=== PATIENT | male | born 1995 | race Hispanic/Latino ===

== ENCOUNTER 2018-08-29 08:00 | Day surgery (SDC) | payer MEDICAID ==
[~2018-08-29] VITALS: Ht 167.6 cm; Wt 120.2 kg
[~2018-08-29 08:00] MED LIST: IBUP-2353 PO; LURA60TA PO; SODIUM CHLORIDE 0.9% 1000ML 1,000 ML IV ONE
[2018-08-29 09:23] VITALS: BP 107/81
[2018-08-29 10:56] VITALS: BP 108/37
[2018-08-29 10:59] VITALS: BP 100/63
[2018-08-29 11:03] VITALS: BP 96/51
[2018-08-29 11:08] VITALS: BP 105/54
--- NOTE | 2018-08-29 11:14 | NUR ---
update Patient and mother awaiting ride, placed in Day Patient room 9 and informed to use call light to inform us when their ride is here so we may take them to their car.
== END 2018-08-29 12:47 | disposition home or self-care (01) ==
LOC: ENDO 08:00 → DAH 08:00 → ENDO 12:47
PROVIDERS: ATTEND Internal Medicine
DX: K29.50 Unspecified chronic gastritis without bleeding (principal); B96.81 Helicobacter pylori [H. pylori] as the cause of diseases classified elsewhere; K31.89 Other diseases of stomach and duodenum; K22.8 Other specified diseases of esophagus; K80.20 Calculus of gallbladder without cholecystitis without obstruction; F90.9 Attention-deficit hyperactivity disorder, unspecified type; F31.9 Bipolar disorder, unspecified; M19.90 Unspecified osteoarthritis, unspecified site; F20.9 Schizophrenia, unspecified; Z79.899 Other long term (current) drug therapy; F84.0 Autistic disorder; Z80.0 Family history of malignant neoplasm of digestive organs; Z88.8 Allergy status to other drugs, medicaments and biological substances
CPT/HCPCS: 43239; 88305; A4606; J7030